=== PATIENT | male | born 1945 | race Caucasian/White ===

== ENCOUNTER → 2024-12-15 | Outpatient (CLI) | payer MEDICARE, BC, SELFPAY ==
--- NOTE | 2024-12-15 14:03 | XR_ITS ---
Examination: Retroperitoneal ultrasound, complete Technique: Multiple high resolution grayscale images of the retroperitoneum obtained, including kidneys and bladder. Exam date and time:December 15, 2024 1428 hrs. Indications: Acute renal insufficiency on laboratory examination June ago Findings: Right kidney 10.7 cm renal cortex 1.7 cm Left kidney 10.4 cm cortex 2.2 cm Moderate bilateral renal parenchymal scar formation 26 mm upper pole left renal cyst Mild left hydronephrosis No bladder mass or bladder calculi Bladder prevoid volume 153 cc Prominent prostatomegaly, volume 146 cc no prostate nodules Impression: Moderate bilateral renal parenchymal scar formation Mild left hydronephrosis Significant prostatomegaly
== END | disposition home or self-care (01) ==
LOC: CDIM 13:46
PROVIDERS: PCP Internal Medicine; Referring Provider Internal Medicine; Visit Provider Internal Medicine
DX: N28.89 Other specified disorders of kidney and ureter (principal); N13.30 Unspecified hydronephrosis; N40.0 Benign prostatic hyperplasia without lower urinary tract symptoms
CPT/HCPCS: 76770

== ENCOUNTER → 2025-01-07 | Outpatient (CLI) | payer MEDICARE, BC, SELFPAY ==
--- NOTE | 2025-01-07 | XR_ITS ---
Examination: Lumbar spine, 5 views Technique: Lumbar spine AP, lateral, coned lateral lower lumbar spine, bilateral obliques 5 views Exam date and time: January 07, 2025 0759 hours INDICATIONS: Lower back pain radiating to the left hip beginning one month ago. FINDINGS: Severe osteopenia Moderate to advanced diffuse facet arthropathy No lumbar fracture Moderate lumbar spondylosis Advanced disc narrowing L5-S1 IMPRESSION: Advanced degenerative disc disease L5-S1
== END | disposition home or self-care (01) ==
LOC: CDIM 07:35
PROVIDERS: PCP Internal Medicine; Referring Provider Internal Medicine; Visit Provider Internal Medicine
DX: M51.379 Other intervertebral disc degeneration, lumbosacral region without mention of lumbar back pain or lower extremity pain (principal)
CPT/HCPCS: 72110

== ENCOUNTER → 2025-02-03 | Outpatient (CLI) | payer MEDICARE, BC, SELFPAY ==
--- NOTE | 2025-02-03 09:30 | XR_ITS ---
Examination: MRI lumbar spine without contrast Date and time of exam: January 0953 hours INDICATIONS: Lower back pain radiating down the left leg numbness in both feet 2 months post injury Technique: Multiple MRI axial and sagittal sections lumbar spine. Sagittal T2-weighted images, TR 3500, TE 118 T1 weighted transverse sections, TR 688 T8.5, T2-weighted sagittal sections T1 weighted sagittal sections TR 621, TE 30 T2 axial sections, TR 4, 190, TE 84. Findings: Adequate alignment lumbar vertebral bodies No lumbar fracture Advanced disc narrowing L5-S1 Diffuse lumbar disc desiccation L5-S1 8 mm central right paracentral disc bulge displacing the right S1 nerve root L4-L5 moderate to severe overall spinal stenosis, axial image 5, 4 mm central lumbar disc bulge, facet arthropathy and thickening of ligamentum flavum L3-L4 no disc protrusion L2-L3 no disc protrusion L1-L2 no disc protrusion IMPRESSION: L5-S1 8 mm central right paracentral disc bulge displacing the right S1 nerve root L4-L5 moderate to severe overall spinal stenosis
== END | disposition home or self-care (01) ==
LOC: SMRI 09:04
PROVIDERS: Referring Provider Orthopaedic Surgery; Visit Provider Orthopaedic Surgery
DX: M51.379 Other intervertebral disc degeneration, lumbosacral region without mention of lumbar back pain or lower extremity pain (principal); M48.061 Spinal stenosis, lumbar region without neurogenic claudication
CPT/HCPCS: 72148

== ENCOUNTER 2025-08-22 12:50 | Day surgery (SDC) | payer MEDICARE, BC, SELFPAY ==
--- NOTE | 2025-08-19 06:00 | EKG_ITS ---
[facility] Test Date: 2025-08-19 Pat Name: SILVIA DUKE Department: Room: - Gender: Male [employer]er: ANTON : 1945 Requested By: Mark Goetz Order Number: [id number] Reading MD: Mark Goetz Measurements Intervals Stanley Rate: 77 P: 12 ND: 144 QRS: 53 QRSD: 80 T: 10 QT: 361 QTc: 410 Interpretive Statements SINUS RHYTHM No previous ECG available for comparison /[id number]/[email or web address]/[id number].pdf
[2025-08-19 12:30] LABS: Alanine Aminotransferase 16 U/L (10-49); Albumin, Serum 4.6 gm/dL (3.4-4.8); Albumin/Globulin Ratio 2.6 (1.2-2.2); Alkaline Phosphatase 69 U/L (46-116); Anion Gap 11 (7-16); Aspartate Amino Transferase 22 U/L (0-34); BUN/Creatinine Ratio 13 Ratio (12-20); Bilirubin,Total 0.5 mg/dL (0.3-1.2); Blood Urea Nitrogen 24 mg/dL (9-23); Calcium 10.6 mg/dL (8.3-10.6); Calcium (Corrected) 10.6 mg/dL (8.5-10.1); Carbon Dioxide 27.2 mMol/L (20.0-31.0); Chloride 106 mMol/L (98-107); Creatinine (Component) 1.8 mg/dL (0.6-1.3); Globulin 1.8 gm/dL (2.3-3.5); Glucose 163 mg/dL (74-106); Osmolality,Calculated 294 (275-295); Potassium 3.7 mMol/L (3.4-5.1); Sodium 144 mMol/L (136-145); Total Protein 6.4 gm/dL (5.7-8.2); eGFR 38 See Note
[2025-08-22 13:56] VITALS: PULSE 72
[2025-08-22 13:58] VITALS: BP 137/71; PULSE 72; RESP 12; O2SAT 97
[2025-08-22 14:06] VITALS: BMI 27.3
[2025-08-22] MEDS: RINGERS LACTATED 1000 ML 1,000 ML 20 ML IV (14:55)
[2025-08-22 15:30] VITALS: BP 85/40; PULSE 66; RESP 16; TEMP 36.4; O2SAT 97
[2025-08-22 15:40] VITALS: BP 108/43; PULSE 63; RESP 16; O2SAT 97
[2025-08-22 15:50] VITALS: BP 133/70; PULSE 76; RESP 16; O2SAT 97
[2025-08-22 15:55] VITALS: BP 126/95; PULSE 78; RESP 16; TEMP 36.4; O2SAT 97
== END 2025-08-22 15:55 | disposition home or self-care (01) ==
PROVIDERS: Anesthesiology; PCP Internal Medicine; Referring Provider Specialist; Visit Provider Specialist
PROC: 0DBE8ZX Excision of Large Intestine, Via Natural or Artificial Opening Endoscopic, Diagnostic (ICD-10-PCS; CPT 45380; principal; 2025-08-22 13:15)
PROC: (CPT 43239; 2025-08-22 13:15)
DX: K64.1 Second degree hemorrhoids (principal); K57.31 Diverticulosis of large intestine without perforation or abscess with bleeding; Z01.810 Encounter for preprocedural cardiovascular examination; E78.5 Hyperlipidemia, unspecified; F41.1 Generalized anxiety disorder; I10 Essential (primary) hypertension; Z79.899 Other long term (current) drug therapy
CPT/HCPCS: 45378; 36415; 80053; 93005; A4649; J7120